=== PATIENT | female | born 2000 | race African-American/Black ===

== ENCOUNTER 2021-08-11 04:52 | Emergency (ER) | payer OTHER ==
[~2021-08-11] VITALS: Ht 160 cm; Wt 59.0 kg
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
[2021-08-11] MEDS ORDERED: ACETAMINOPHEN ES 500 MG TABLET PO ONE (05:30)
[2021-08-11] MEDS ORDERED: IBUPROFEN 600 MG TABLET PO ONE (05:30)
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
[2021-08-11] MEDS ORDERED: ACETAMINOPHEN ES 500 MG TABLET ONE (05:37)
[2021-08-11] MEDS ORDERED: IBUPROFEN 600 MG TABLET ONE (05:38)
--- NOTE | 2021-08-11 05:47 | NUR ---
URINE COLLECTED AND SENT TO LAB
--- NOTE | 2021-08-11 05:49 | NUR ---
[facility] AT BEDSIDE
--- NOTE | 2021-08-11 06:23 | NUR ---
PT TAKEN TO RADIOLOGY : CT CERVICAL SPINE W/O CONTRAST
[2021-08-11 07:52] VITALS: BP 110/60
--- NOTE | 2021-08-11 07:52 | NUR ---
Patient discharged to home in stable condition. Written and verbal after care instructions given. Patient verbalizes understanding of instruction.
== END 2021-08-11 07:53 | disposition home or self-care (01) ==
LOC: ER 04:54
DX: R07.0 Pain in throat (principal); M54.2 Cervicalgia; Y08.89XA Assault by other specified means, initial encounter; Y93.89 Activity, other specified; Y92.89 Other specified places as the place of occurrence of the external cause; Y99.8 Other external cause status
CPT/HCPCS: 72125-TC; 84703-TC